=== PATIENT | male | born 1965 | race African-American/Black ===

== ENCOUNTER 2023-05-29 18:02 | Emergency (ER) | payer SELFPAY ==
[~2023-05-29] VITALS: Ht 182.9 cm; Wt 75.0 kg
[2023-05-29 18:05] VITALS: O2SAT 99
[2023-05-29] MEDS: LEVETIRACETAM 1000MG PREMIX 100 ML IV ONE (19:03)
[2023-05-29 19:24] LABS: BASOPHILS % 0.7 % (0.0-2.0); EOSINOPHILS % 1.6 % (0.0-5.0); HEMATOCRIT. 45.2 % (42.0-52.0); HEMOGLOBIN. 15.2 g/dL (14.0-18.0); LYMPHOCYTES % 17.9 % (20.0-50.0); MEAN CORPUSCULAR HEMOGLOBIN 33.1 pg (28.0-32.0); MEAN CORPUSCULAR HGB CONC 33.7 g/dL (31.0-37.0); MEAN CORPUSCULAR VOLUME 98.3 fL (80.0-94.0); MEAN PLATELET VOLUME 9.1 fl (7.4-10.4); MONOCYTES % 8.9 % (2.0-8.0); NEUTROPHILS % 70.9 % (40.0-76.0); PLATELET 248 x1000/uL (130-400); RED CELL DISTRIBUTION WIDTH 13.1 % (11.6-14.6); WHITE BLOOD COUNT 8.5 x1000/uL (4.5-11.0)
[2023-05-29 19:39] LABS: AMMONIA < 17 uMol/L (<32)
[2023-05-29 19:40] LABS: ALANINE AMINOTRANSFERASE 17 IU/L (10-49); ALBUMIN 3.8 g/dL (3.2-4.8); ASPARTATE AMINOTRANSFERASE 26 IU/L (<34); BILIRUBIN TOTAL 0.2 mg/dL (0.1-1.0); CALCIUM 9.2 mg/dL (8.7-10.4); CARBON DIOXIDE 25 mEq/L (21-32); CHLORIDE 105 mEq/L (98-107); GLUCOSE 244 mg/dL (70-105); POTASSIUM 4.3 mEq/L (3.5-5.1); PROTEIN TOTAL 6.4 g/dL (6.0-8.3); SODIUM 139 mEq/L (136-145); TROPONIN I HIGH SENSITIVITY 38 ng/L (3.0-53); UREA NITROGEN BLOOD 17 mg/dL (9-23)
[2023-05-29 19:44] LABS: ETHANOL BLOOD < 10 mg/dL (<10)
[2023-05-29] MEDS ORDERED: PHEN100C4 MT (21:34)
[2023-05-29] MEDS: PHENYTOIN SODIUM 1,000 MG in SODIUM CHLORIDE 0.9% 100 ML IV NR (21:52)
[2023-05-29 22:31] VITALS: BP 139/85; PULSE 67; RESP 13
== END 2023-05-29 23:15 | disposition home or self-care (01) ==
LOC: ER 18:02 → EDBD 18:02 → ER 23:15
DX: G40.89 Other seizures (principal)
CPT/HCPCS: 80053; 80320; 82140; 85025; 84484; 36415; 70450; 96367; 96365; 96366; 99285; J1953; J1165; J7050; G0480